=== PATIENT | male | born 1950 | race Caucasian/White ===

== ENCOUNTER 2018-02-10 12:56 | Outpatient (CLI) | payer OTHER ==
[2018-02-11] MEDS ORDERED: RELAFEN (15:35)
[2018-02-11] MEDS ORDERED: TRAMADOL HCL50 MG PO (15:36)
== END 2018-02-10 13:15 | disposition home or self-care (01) ==
LOC: LAB 12:56
DX: D68.8 Other specified coagulation defects (principal); E78.2 Mixed hyperlipidemia; N39.0 Urinary tract infection, site not specified; I10 Essential (primary) hypertension; R07.89 Other chest pain; Z01.818 Encounter for other preprocedural examination

== ENCOUNTER 2018-02-19 05:15 | Day surgery (SDC) | payer OTHER ==
[~2018-02-19 05:15] MED LIST: RELAFEN; TRAMADOL HCL50 MG PO
[2018-02-19] MEDS ORDERED: NABUMETONE500 MG PO (09:34)
[2018-02-19] MEDS ORDERED: TRAMADOL HCL50 MG PO (09:35)
== END 2018-02-19 13:00 | disposition home or self-care (01) ==
LOC: CIR.AMB 05:15
DX: M66.262 Spontaneous rupture of extensor tendons, left lower leg (principal)